=== PATIENT | male | born 1985 | race Caucasian/White ===

== ENCOUNTER → 2017-01-24 | Outpatient (CLI) | payer OTHER ==
[~2017-01-24] MED LIST: ATV1 PO; DICY10CA12 PO; LRS20 PO; MELO15TA4 PO; NRN600 PO; OXYC-609 PO; OXYC1TAB3 PO; POLY335019 PO; SNG10 PO; SULF800T23 PO
== END | disposition home or self-care (01) ==
LOC: C.LAB 19:11
DX: Z02.83 Encounter for blood-alcohol and blood-drug test (principal)

== ENCOUNTER 2017-02-26 20:16 | Emergency (ER) | payer OTHER ==
[~2017-02-26] VITALS: Ht 172.7 cm; Wt 61.4 kg
[~2017-02-26 20:16] MED LIST changes: -NRN600 PO; -OXYC-609 PO; -OXYC1TAB3 PO; -POLY335019 PO; -SULF800T23 PO
[2017-02-26 20:28] VITALS: TEMP 37.1; Ht 172.7 cm; Wt 61.4 kg
[2017-02-26] MEDS ORDERED: SULF800T23 PO (22:35)
[2017-02-26] MEDS ORDERED: ONDANSETRON INJ 2 MG/ML 2 ML VIAL IV STA (22:50)
[2017-02-26] MEDS ORDERED: SODIUM CHLORIDE 0.9% 500ML 500 ML IV STA (22:50)
[2017-02-26] MEDS ORDERED: SODIUM CHLORIDE 0.9% 1000ML 1,000 ML IV STA (22:50)
[2017-02-26] MEDS ORDERED: MoRPHine SULFATE 10 MG/ML CARP/VIAL IV PRN (23:00)
[2017-02-26] MEDS ORDERED: OPTIRAY 320 IV PRN (23:00)
--- NOTE | 2017-02-26 23:02 | EMERGENCY ROOM VISIT NOTE ---
History First contact with patient: 22:24 Chief Complaint: ABDOMINAL PAIN Stated Complaint: RT SIDE ABDOMINAL PAIN Nursing Triage Summary: right sided abd pain since yesterday pt has no appendix. History of Present Illness The patient is a 31 year old male w/ hx of Intussusception s/p repair and Appendectomy ( Rosangela Bryan 2013 ) who presents to the Emergency Room with complaints of 2 day hx of abdominal pain. Pain is 8-9/10 intensity, radiating to the back, comes and goes with a duration of hours at a time, worsens with breathing. He denies any association with eating. He also reports Nausea/vomiting, constipation although he reports a BM yesterday. Pt denies headache fevers, chills, chest pain, shortness of breath, diarrhea, pain with urination, and melena. Review of Systems See HPI for pertinent positives & negatives. A total of 10 systems reviewed and were otherwise negative. Past Medical/Surgical History Medical Problems: (1) Abdominal pain (2) Abdominal pain, acute (3) Asthma (4) GI bleed (5) GI bleed (6) GI bleed (7) Headache (8) Headache (9) Hematochezia (10) Hemorrhoid (11) Influenza A (12) Influenza A (13) Intussusception (14) Nausea and vomiting (15) Small and large bowel resection Surgical Problems: (1) History of bowel resection Family History Diabetes mellitus FH: cancer Hypertension Social History Smoking Status: Current Every Day Smoker Alcohol Use: none Drug Use: none Marital Status: in relationship Housing Status: lives with significant other Occupation Status: employed Current/Historical Medications Scheduled Dicyclomine Hcl (Dicyclomine Hcl), 10 MG PO BID Gabapentin (Gabapentin), 600 MG PO TID Meloxicam (Meloxicam), 15 MG PO DAILY Montelukast Sod (Montelukast Sodium), 10 MG PO DAILY Sulfa/Trimethoprim (Bactrim Ds 800MG/160MG), 1 TAB PO BID Scheduled PRN Baclofen (Baclofen), 20 MG PO TID PRN for Muscle Spasm Lorazepam (Lorazepam), 0.5-1 MG PO TID PRN for Anxiety/Panic Allergies Coded Allergies: Amoxicillin (Verified Allergy, Intermediate, Swelling amd blistering of hands, 02/26/17) Clavulanic Acid (Verified Allergy, Intermediate, Swelling amd blistering of hands, 02/26/17) Physical Exam Vital Signs Date Time Temp Pulse Resp B/P Pulse Ox O2 Delivery O2 Flow Rate FiO2 02/27/17 00:28 76 02/26/17 20:28 37.1 94 20 128/72 98 Physical Exam GENERAL: alert, severe distress secondary to abdominal pain EYE EXAM: normal conjunctiva, PERRL and EOM's grossly intact OROPHARYNX: no exudate, no erythema, lips, buccal mucosa, and tongue normal and mucous membranes are moist NECK: supple, no nuchal rigidity, no adenopathy, non-tender LUNGS: Clear to auscultation. Normal chest wall mechanics HEART: no murmurs, S1 normal and S2 normal ABDOMEN: +rigidity, +guarding, non-distended, Tender to palpation in the RUQ, normo-active bowel sounds, no masses SKIN: no rashes and no bruising UPPER EXTREMITIES: upper extremities are grossly normal. LOWER EXTREMITIES: No pitting edema. Medical Decision & Procedures Laboratory Results 02/26/17 23:35 Red Blood Count 4.29, Mean Corpuscular Volume 87.6, Mean Corpuscular Hemoglobin 31.5, Mean Corpuscular Hemoglobin Concent 35.9, Mean Platelet Volume 9.6, Neutrophils (%) (Auto) 60.0, Lymphocytes (%) (Auto) 30.2, Monocytes (%) (Auto) 7.5, Eosinophils (%) (Auto) 1.6, Basophils (%) (Auto) 0.4, Neutrophils # (Auto) 4.50, Lymphocytes # (Auto) 2.26, Monocytes # (Auto) 0.56, Eosinophils # (Auto) 0.12, Basophils # (Auto) 0.03 02/26/17 23:35 Test 02/26/17 23:35 02/26/17 23:56 02/27/17 00:25 White Blood Count 7.49 K/uL (4.8-10.8) Red Blood Count 4.29 M/uL (4.7-6.1) Hemoglobin 13.5 g/dL (14.0-18.0) Hematocrit 37.6 % (42-52) Mean Corpuscular Volume 87.6 fL (80-100) Mean Corpuscular Hemoglobin 31.5 pg (25-34) Mean Corpuscular Hemoglobin Concent 35.9 g/dl (32-36) Platelet Count 241 K/uL (130-400) Mean Platelet Volume 9.6 fL (7.4-10.4) Neutrophils (%) (Auto) 60.0 % Lymphocytes (%) (Auto) 30.2 % Monocytes (%) (Auto) 7.5 % Eosinophils (%) (Auto) 1.6 % Basophils (%) (Auto) 0.4 % Neutrophils # (Auto) 4.50 K/uL (1.4-6.5) Lymphocytes # (Auto) 2.26 K/uL (1.2-3.4) Monocytes # (Auto) 0.56 K/uL (0.11-0.59) Eosinophils # (Auto) 0.12 K/uL (0-0.5) Basophils # (Auto) 0.03 K/uL (0-0.2) RDW Standard Deviation 46.4 fL (36.4-46.3) RDW Coefficient of Variation 14.4 % (11.5-14.5) Immature Granulocyte % (Auto) 0.3 % Immature Granulocyte # (Auto) 0.02 K/uL (0.00-0.02) Echinocytes 1+ Est Creatinine Clear Calc Drug Dose 71.5 ml/min Estimated GFR () 84.3 Estimated GFR (Non- 72.7 BUN/Creatinine Ratio 16.3 (10-20) Calcium Level 8.6 mg/dl (8.5-10.1) Total Bilirubin 0.3 mg/dl (0.2-1) Direct Bilirubin < 0.1 mg/dl (0-0.2) Aspartate Amino Transf (AST/SGOT) 32 U/L (15-37) Alanine Aminotransferase (ALT/SGPT) 37 U/L (12-78) Alkaline Phosphatase 77 U/L (45-117) Total Protein 7.2 gm/dl (6.4-8.2) Albumin 4.1 gm/dl (3.4-5.0) Lipase 101 U/L (73-393) Bedside Hemoglobin 13.6 g/dl (14.0-18.0) Bedside Hematocrit 40 % (42-52) Bedside Sodium 138 mEq/L (135-144) Bedside Potassium 4.2 mEq/L (3.3-5.0) Bedside Chloride 101 mEq/L (101-112) Bedside Total CO2 24 mEq/l (24-31) Anion Gap 19.0 mmol/L (16-25) Bedside Blood Urea Nitrogen 21 mg/dl (7-18) Bedside Creatinine 1.2 mg/dl (0.6-1.3) Bedside Glucose (other) 106 mg/dl (70-99) Bedside Ionized Calcium (Adeline) 1.15 mmol/l (1.12-1.32) Medications Administered Medications (Trade) Dose Ordered Sig/[facility] Route Start Time Stop Time Status Last Admin Dose Admin Sodium Chloride 500 ml @ 999 mls/hr Q31M STAT IV 02/26/17 22:50 02/26/17 23:20 DC 02/26/17 23:45 999 MLS/HR Sodium Chloride (Nss 1000ml) 1,000 ml @ 200 mls/hr Q5H STAT IV 02/26/17 22:50 02/27/17 03:49 02/26/17 23:45 200 MLS/HR Ondansetron HCl (Zofran Inj) 4 mg NOW STAT IV 02/26/17 22:50 02/26/17 22:53 DC 02/26/17 23:43 4 MG Morphine Sulfate (MoRPHine SULFATE INJ) 4 mg STK-MED ONCE .ROUTE 02/26/17 23:43 02/26/17 23:44 DC 02/26/17 23:43 4 MG Morphine Sulfate (MoRPHine SULFATE INJ) 2 mg STK-MED ONCE .ROUTE 02/26/17 23:43 02/26/17 23:44 DC 02/26/17 23:44 2 MG Morphine Sulfate (MoRPHine SULFATE INJ) 4 mg STK-MED ONCE .ROUTE 02/27/17 00:10 02/27/17 00:11 DC 02/27/17 00:01 4 MG Morphine Sulfate (MoRPHine SULFATE INJ) 2 mg STK-MED ONCE .ROUTE 02/27/17 00:10 02/27/17 00:11 DC 02/27/17 00:01 2 MG Medical Decision Differential diagnoses includes but is not limited to gastritis, peptic ulcer disease, GERD, gallbladder disease, pancreatitis, small bowel obstruction, acute coronary syndrome, pericarditis, ischemic bowel, irritable bowel disease, irritable bowel syndrome, appendicitis, diverticulitis, malignancy, hernia, urinary tract infection, torsion, perforation, trauma, infectious. intussusception This is a 31 yo M with a Hx of intussusception s/p surgical repair (2013) s/p appendectomy p/w 8-08/11 abdominal pain x 2 days, afebrile, with guarding, rigidity on exam, tenderness to palpation in RUQ. Abdominal Pain - Make NPO - CBC: H/H 13.5/37.6 unremarkable - BMP: unremarkable - LFT: wnl - Lipase: wnl - CT Abdomen/Pelvis: unremarkable Patient has abdominal pain of unknown etiology, Labs unremarkable, CT abdomen, pelvis unremarkable. Pain controlled in ED with Morphine 6 mg, IV Dilaudid .5 mg, 30 mg IV Toradol. Patient was discharged with followup to PCP within the next 2 days. - Given Morphine 6mg q15 PRN, IV Zofran 4 mg - Given IV Fluids 2L NS - Given IV Toradol 30 mg x1 - Given IV Dilaudid .5 mg x1 Impression Primary Impression: RUQ abdominal pain Departure Information Referrals Jenny Trujillo A. P.ARazia (PCP) Patient Instructions My [facility] Resident Tracking Resident Involvement: Resident Care Provided Care Provided: Adult ED
--- NOTE | 2017-02-26 23:35 | EMERGENCY ROOM VISIT NOTE ---
History Report prepared by Idalia: Jer Monk Under the Supervision of: Dr. Nolberto Yang M.D. First contact with patient: 22:23 Chief Complaint: ABDOMINAL PAIN Stated Complaint: RT SIDE ABDOMINAL PAIN Nursing Triage Summary: right sided abd pain since yesterday pt has no appendix. History of Present Illness The patient is a 31 year old male who presents to the Emergency Room with complaints of on and off worsening right sided abdominal pain starting two days ago. He currently rates his discomfort as an 8-9/10 in severity. The patient states that the pain really got worse around 1800 tonight. The patient additionally is complaining of nausea, and the pain radiating to his back. The patient denies any vomiting, testicular pain, or urinary symptoms. He states that he had surgery for intussusception and an appendectomy in the past. The patient states that he has a history of kidney infections. He states that the pain is not worsened with eating, and he states that the pain is worsened with breathing. Source of History: patient Onset: two days ago Position: abdomen (RUQ) Symptom Intensity: 8-9/10 Timing: worsening, other (on and off) Modifying Factors (Worsening): breathing Associated Symptoms: + back pain, + nausea, No urinary symptoms, No vomiting Review of Systems See HPI for pertinent positives & negatives. A total of 10 systems reviewed and were otherwise negative. Past Medical & Surgical Medical Problems: (1) Abdominal pain (2) Abdominal pain, acute (3) Asthma (4) GI bleed (5) GI bleed (6) GI bleed (7) Headache (8) Headache (9) Hematochezia (10) Hemorrhoid (11) Influenza A (12) Influenza A (13) Intussusception (14) Nausea and vomiting (15) Small and large bowel resection Surgical Problems: (1) History of bowel resection Family History Diabetes mellitus FH: cancer Hypertension Social History Smoking Status: Current Every Day Smoker Alcohol Use: none Drug Use: none Marital Status: in relationship Housing Status: lives with significant other Occupation Status: employed Current/Historical Medications Scheduled Dicyclomine Hcl (Dicyclomine Hcl), 10 MG PO BID Gabapentin (Gabapentin), 600 MG PO TID Meloxicam (Meloxicam), 15 MG PO DAILY Montelukast Sod (Montelukast Sodium), 10 MG PO DAILY Sulfa/Trimethoprim (Bactrim Ds 800MG/160MG), 1 TAB PO BID Scheduled PRN Baclofen (Baclofen), 20 MG PO TID PRN for Muscle Spasm Lorazepam (Lorazepam), 0.5-1 MG PO TID PRN for Anxiety/Panic Allergies Coded Allergies: Amoxicillin (Verified Allergy, Intermediate, Swelling amd blistering of hands, 02/26/17) Clavulanic Acid (Verified Allergy, Intermediate, Swelling amd blistering of hands, 02/26/17) Physical Exam Vital Signs Date Time Temp Pulse Resp B/P Pulse Ox O2 Delivery O2 Flow Rate FiO2 02/27/17 01:13 64 16 103/43 95 Room Air 02/27/17 00:28 76 02/26/17 20:28 37.1 94 20 128/72 98 Physical Exam GENERAL: Holding his right upper quadrant in significant distress secondary to pain. HEENT: No acute trauma, normocephalic atraumatic, mucous membranes moist, no nasal congestion, no scleral icterus. NECK: No stridor, no adenopathy, no meningismus, trachea is midline. LUNGS: Clear to auscultation bilaterally, no wheeze, no rhonchi, breath sounds equal. HEART: Without murmurs gallops or rubs, regular rate and rhythm. ABDOMEN: Soft, tender in the right upper quadrant, bowel sounds positive, no distension, no obvious hernias, no peritonitis. EXTREMITIES: No cyanosis or edema, full range of motion of all the joints without pain or difficulty, no signs for acute trauma. NEUROLOGIC: Oriented x 3, no acute motor or sensory deficits, no focal weakness. SKIN: No rash, no jaundice, no diaphoresis. Medical Decision & Procedures ER Provider Diagnostic Interpretation: CT results as stated below per my review and radiologist interpretation: CT ABDOMEN & PELVIS: Comparison: CT abdomen and pelvis 11/22/15 Postsurgical changes near the cecal tip and terminal ileum. No evidence of bowel obstruction. No free fluid. No free air. Liver, gallbladder, pancreas, spleen, adrenals, and kidneys are unremarkable. Urinary bladder is moderately distended. Radiologist: Tariq See MD Laboratory Results 02/26/17 23:35 Red Blood Count 4.29, Mean Corpuscular Volume 87.6, Mean Corpuscular Hemoglobin 31.5, Mean Corpuscular Hemoglobin Concent 35.9, Mean Platelet Volume 9.6, Neutrophils (%) (Auto) 60.0, Lymphocytes (%) (Auto) 30.2, Monocytes (%) (Auto) 7.5, Eosinophils (%) (Auto) 1.6, Basophils (%) (Auto) 0.4, Neutrophils # (Auto) 4.50, Lymphocytes # (Auto) 2.26, Monocytes # (Auto) 0.56, Eosinophils # (Auto) 0.12, Basophils # (Auto) 0.03 02/26/17 23:35 Test 02/26/17 23:35 02/26/17 23:56 02/27/17 00:25 White Blood Count 7.49 K/uL (4.8-10.8) Red Blood Count 4.29 M/uL (4.7-6.1) Hemoglobin 13.5 g/dL (14.0-18.0) Hematocrit 37.6 % (42-52) Mean Corpuscular Volume 87.6 fL (80-100) Mean Corpuscular Hemoglobin 31.5 pg (25-34) Mean Corpuscular Hemoglobin Concent 35.9 g/dl (32-36) Platelet Count 241 K/uL (130-400) Mean Platelet Volume 9.6 fL (7.4-10.4) Neutrophils (%) (Auto) 60.0 % Lymphocytes (%) (Auto) 30.2 % Monocytes (%) (Auto) 7.5 % Eosinophils (%) (Auto) 1.6 % Basophils (%) (Auto) 0.4 % Neutrophils # (Auto) 4.50 K/uL (1.4-6.5) Lymphocytes # (Auto) 2.26 K/uL (1.2-3.4) Monocytes # (Auto) 0.56 K/uL (0.11-0.59) Eosinophils # (Auto) 0.12 K/uL (0-0.5) Basophils # (Auto) 0.03 K/uL (0-0.2) RDW Standard Deviation 46.4 fL (36.4-46.3) RDW Coefficient of Variation 14.4 % (11.5-14.5) Immature Granulocyte % (Auto) 0.3 % Immature Granulocyte # (Auto) 0.02 K/uL (0.00-0.02) Echinocytes 1+ Est Creatinine Clear Calc Drug Dose 71.5 ml/min Estimated GFR () 84.3 Estimated GFR (Non- 72.7 BUN/Creatinine Ratio 16.3 (10-20) Calcium Level 8.6 mg/dl (8.5-10.1) Total Bilirubin 0.3 mg/dl (0.2-1) Direct Bilirubin < 0.1 mg/dl (0-0.2) Aspartate Amino Transf (AST/SGOT) 32 U/L (15-37) Alanine Aminotransferase (ALT/SGPT) 37 U/L (12-78) Alkaline Phosphatase 77 U/L (45-117) Total Protein 7.2 gm/dl (6.4-8.2) Albumin 4.1 gm/dl (3.4-5.0) Lipase 101 U/L (73-393) Bedside Hemoglobin 13.6 g/dl (14.0-18.0) Bedside Hematocrit 40 % (42-52) Bedside Sodium 138 mEq/L (135-144) Bedside Potassium 4.2 mEq/L (3.3-5.0) Bedside Chloride 101 mEq/L (101-112) Bedside Total CO2 24 mEq/l (24-31) Anion Gap 19.0 mmol/L (16-25) Bedside Blood Urea Nitrogen 21 mg/dl (7-18) Bedside Creatinine 1.2 mg/dl (0.6-1.3) Bedside Glucose (other) 106 mg/dl (70-99) Bedside Ionized Calcium (Adeline) 1.15 mmol/l (1.12-1.32) Urine Color YELLOW Urine Appearance CLEAR (CLEAR) Urine pH 7.5 (4.5-7.5) Urine Specific Leming 1.017 (1.000-1.030) Urine Protein NEG (NEG) Urine Glucose (UA) NEG (NEG) Urine Ketones NEG (NEG) Urine Occult Blood NEG (NEG) Urine Nitrite NEG (NEG) Urine Bilirubin NEG (NEG) Urine Urobilinogen NEG (NEG) Urine Leukocyte Esterase NEG (NEG) Laboratory results reviewed by me. Medications Administered Medications (Trade) Dose Ordered Sig/Lauren Route Start Time Stop Time Status Last Admin Dose Admin Sodium Chloride 500 ml @ 999 mls/hr Q31M STAT IV 02/26/17 22:50 02/26/17 23:20 DC 02/26/17 23:45 999 MLS/HR Sodium Chloride (Nss 1000ml) 1,000 ml @ 200 mls/hr Q5H STAT IV 02/26/17 22:50 02/27/17 03:49 02/26/17 23:45 200 MLS/HR Ondansetron HCl (Zofran Inj) 4 mg NOW STAT IV 02/26/17 22:50 02/26/17 22:53 DC 02/26/17 23:43 4 MG Morphine Sulfate (MoRPHine SULFATE INJ) 4 mg STK-MED ONCE .ROUTE 02/26/17 23:43 02/26/17 23:44 DC 02/26/17 23:43 4 MG Morphine Sulfate (MoRPHine SULFATE INJ) 2 mg STK-MED ONCE .ROUTE 02/26/17 23:43 02/26/17 23:44 DC 02/26/17 23:44 2 MG Morphine Sulfate (MoRPHine SULFATE INJ) 4 mg STK-MED ONCE .ROUTE 02/27/17 00:10 02/27/17 00:11 DC 02/27/17 00:01 4 MG Morphine Sulfate (MoRPHine SULFATE INJ) 2 mg STK-MED ONCE .ROUTE 02/27/17 00:10 02/27/17 00:11 DC 02/27/17 00:01 2 MG Hydromorphone HCl (Dilaudid Inj) 0.5 mg NOW STAT IV 02/27/17 00:45 02/27/17 00:46 DC 02/27/17 01:09 0.5 MG Ketorolac Tromethamine (Toradol Inj) 30 mg NOW STAT IV 02/27/17 00:57 02/27/17 01:00 DC 02/27/17 01:10 30 MG ED Course 2247: The patient was evaluated in room B9. A complete history and physical exam was performed. 2250: Zofran Inj 4mg IV, Sodium Chloride 1000 ml @ 200 mls/hr IV, Sodium Chloride 500 ml @ 999 mls/hr IV 2343: Morphine Sulfate 2mg, Morphine Sulfate 4mg 0010: Morphine Sulfate 2mg, Morphine Sulfate 4mg 0045: Dilaudid Inj 0.5mg IV 0057: Toradol Inj 30mg IV 0135: Reevaluated the patient. Discussed results and discharge instructions: He verbalized understanding and agreement. The patient is ready for discharge. 0145: Roxicodone Immediate Rel 5mg 1 Home Pack PO Medical Decision The patient is a 31 year old male who presents to the ED with complaints of right sided abdominal pain. Differential diagnoses considered include renal colic, bowel obstruction, bowel perforation, biliary colic, pancreatitis, hernia , UTI, pyelonephritis, diverticulitis. There is no leukocytosis or concerning anemia. No significant electrolyte abnormality, kidney failure, hepatitis or pancreatitis. Urinalysis does not show hematuria or infection. Abdominal and pelvis CT shows no bowel obstruction , or free air or acute surgical process. On exam, the patient was not febrile. He seemed in pain but his abdomen was soft. He was tender along the right side. I did not find evidence for peritonitis. Patient received IV morphine, IV saline, IV Zofran. He received IV Dilaudid and IV Toradol. The patient feels improved, he does want to be discharged home. He has had similar abdominal pain but not to this extent. He is much more comfortable now and is going to be discharged with a bland diet, a few oxycodone, rest. If he has worsening symptoms, fever or vomiting, he will return for reassessment. At this point, the cause for the pain is unclear. [place] Drug Monitoring Program Search Results: patient reviewed within database, no issues identified Impression Primary Impression: Right sided abdominal pain Scribe Attestation The scribe's documentation has been prepared under my direction and personally reviewed by me in its entirety. I confirm that the note above accurately reflects all work, treatment, procedures, and medical decision making performed by me. Departure Information Dispostion Home / Self-Care Referrals Jenny Trujillo A. P.A. (PCP) Forms Call Back Authorization, HOME CARE DOCUMENTATION FORM, IMPORTANT VISIT INFORMATION, Work Instructions Patient Instructions My [facility] [employer] Additional Instructions oxy ir 1 tab every 4 hours for more severe pain all other meds as before bland diet---gatorade, crackers, soup, toast follow with shelia dorantes this week for a recheck heat to the sore area may help return for fever or worsening symptoms testing today was all ok as we discussed
[2017-02-26] MEDS ORDERED: MoRPHine SULFATE 2 MG/ML CARP ONE (23:43)
[2017-02-26] MEDS ORDERED: MoRPHine SULFATE 4 MG/ML 1 ML CARP\\VIAL ONE (23:43)
[2017-02-27 00:01] LABS: HEMATOCRIT 37.6 % (42-52); MEAN CELL VOLUME 87.6 fL (80-100); MEAN CORPUSCULAR HEMOGLOBIN 31.5 pg (25-34); MEAN CORPUSCULAR HGB CONC 35.9 g/dl (32-36); MEAN PLATELET VOLUME 9.6 fL (7.4-10.4); PLATELET COUNT 241 K/uL (130-400); RED BLOOD COUNT 4.29 M/uL (4.7-6.1); WHITE BLOOD COUNT 7.49 K/uL (4.8-10.8)
[2017-02-27 00:09] LABS: ISTAT CREATININE 1.2 mg/dl (0.6-1.3); ISTAT HEMOGLOBIN 13.6 g/dl (14.0-18.0); ISTAT IONIZED CALCIUM 1.15 mmol/l (1.12-1.32)
[2017-02-27] MEDS ORDERED: MoRPHine SULFATE 2 MG/ML CARP ONE (00:10)
[2017-02-27] MEDS ORDERED: MoRPHine SULFATE 4 MG/ML 1 ML CARP\\VIAL ONE (00:10)
[2017-02-27 00:23] LABS: ALT/SGPT 37 U/L (12-78); BLOOD UREA NITROGEN 21 mg/dl (7-18); BUN/CREATININE RATIO 16.3 (10-20); CALCIUM 8.6 mg/dl (8.5-10.1); CARBON DIOXIDE 26 mmol/L (21-32); CHLORIDE 105 mmol/L (98-107); GLUCOSE 106 mg/dl (70-99); POTASSIUM 4.2 mmol/L (3.5-5.1); SODIUM 139 mmol/L (136-145)
[2017-02-27 00:25] LABS: ALKALINE PHOSPHATASE 77 U/L (45-117); AST/SGOT 32 U/L (15-37)
[2017-02-27] MEDS ORDERED: HYDROmorphone INJ 0.5 MG/0.5 ML SYR IV STA (00:45)
[2017-02-27 00:50] LABS: URINE APPEARANCE CLEAR (CLEAR); URINE BILIRUBIN NEG (NEG); URINE COLOR YELLOW; URINE NITRITE NEG (NEG); URINE PH 7.5 (4.5-7.5); URINE SPECIFIC GRAVITY 1.017 (1.000-1.030); UROBILINOGEN NEG (NEG)
[2017-02-27 00:54] LABS: BASO % 0.4 %; BASO ABS # 0.03 K/uL (0-0.2); COMPLETE YES; ECHINOCYTES 1+; EOS % 1.6 %; IG% 0.3 %; LYMPH % 30.2 %; LYMPH ABS # 2.26 K/uL (1.2-3.4); MONO % 7.5 %
[2017-02-27] MEDS ORDERED: KETOROLAC TROMETHAMINE 30 MG/ML VIAL IV STA (00:57)
[2017-02-27 01:11] LABS: MANUAL MICROSCOPIC REQUIRED? NO; REVIEW REQ? NO
[2017-02-27 01:45] VITALS: BP 94/47; PULSE 55; O2SAT 96
[2017-02-27] MEDS ORDERED: OXYCODONE IR HOME PACK PO ONE (01:45)
--- NOTE | 2017-02-27 06:56 | DIAGNOSTIC IMAGING REPORT ---
CT ABD/PELVIS IV CONTRAST ONLY CLINICAL HISTORY: Severe generalized abdominal pain. History of intussusception. History of prior partial bowel resection. Possible bowel obstruction. COMPARISON STUDY: 11/22/2015 TECHNIQUE: Following the IV administration of 91 mL of Optiray-320, CT scan of the abdomen and pelvis was performed from the lung bases to the proximal femurs. Images are reviewed in the axial, sagittal, and coronal planes. IV contrast was administered without complication. CT DOSE: 404.62 mGycm FINDINGS: Lower chest: The heart is normal in size and configuration, without pericardial effusion. The lung bases and pleural spaces are clear. Liver: The contrast-enhanced liver is normal in size, contour, and attenuation. There is no intrahepatic biliary ductal dilatation. The hepatic veins and portal veins are patent. Gallbladder: Unremarkable. Spleen: Normal in size and attenuation. Pancreas: Unremarkable. Adrenal glands: Unremarkable. Kidneys: There is symmetric renal cortical enhancement. The kidneys are normal in size without hydronephrosis. Bowel: There are no transition zones indicate bowel obstruction. There are postsurgical changes within the right colon. By history the appendix is absent. There is no acute diverticulitis. Peritoneum: There is no intraperitoneal free air or abdominal ascites. Vasculature: The abdominal aorta is normal in course and caliber. Adenopathy: None. Pelvic viscera: There is mild bladder distention. Skeletal structures: No destructive osseous lesions are seen. IMPRESSION: 1. Postsurgical changes involving the cecal region 2. No acute intra-abdominal or pelvic findings 3. No evidence of bowel obstruction. No evidence of free air 4. Mildly distended urinary bladder 5. No acute inflammatory changes Electronically signed by: Hood Lozano M.D. 02/27/2017 6:54 AM Dictated Date/Time: 02/27/2017 6:51 AM
[2017-02-28] MEDS ORDERED: OXYC-609 PO (11:51)
[2017-02-28] MEDS ORDERED: POLY335019 PO (13:28)
[2017-02-28] MEDS ORDERED: OXYC1TAB3 PO (13:28)
[2017-06-09] MEDS ORDERED: NRN600 PO (17:43)
== END 2017-02-27 01:45 | disposition home or self-care (01) ==
LOC: C.EDB 20:17
DX: R10.9 Unspecified abdominal pain (principal); J45.909 Unspecified asthma, uncomplicated; F17.200 Nicotine dependence, unspecified, uncomplicated; Z98.890 Other specified postprocedural states; Z79.899 Other long term (current) drug therapy; Z88.1 Allergy status to other antibiotic agents; Z88.8 Allergy status to other drugs, medicaments and biological substances; Z83.3 Family history of diabetes mellitus; Z80.9 Family history of malignant neoplasm, unspecified; Z82.49 Family history of ischemic heart disease and other diseases of the circulatory system

== ENCOUNTER 2017-02-28 11:31 | Emergency (ER) | payer OTHER ==
[~2017-02-28] VITALS: Ht 172.7 cm; Wt 67.5 kg
[~2017-02-28 11:31] MED LIST changes: +SULF800T23 PO
[2017-02-28 11:37] VITALS: TEMP 36.6; Ht 172.7 cm; Wt 67.5 kg
[2017-02-28] MEDS ORDERED: OXYC-609 PO (11:51)
[2017-02-28] MEDS ORDERED: SODIUM CHLORIDE 0.9% 1000ML 1,000 ML IV STA (12:05)
[2017-02-28] MEDS ORDERED: ONDANSETRON INJ 2 MG/ML 2 ML VIAL IV STA (12:05)
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
[2017-02-28] MEDS ORDERED: MoRPHine SULFATE 4 MG/ML 1 ML CARP\\VIAL IV PRN (12:15)
[2017-02-28] MEDS ORDERED: OPTIRAY 320 IV PRN (12:15)
--- NOTE | 2017-02-28 12:19 | DIAGNOSTIC IMAGING REPORT ---
CHEST ONE VIEW PORTABLE CLINICAL HISTORY: ABDOMINAL PAIN/GI pain COMPARISON STUDY: 05/10/2016 FINDINGS: The bones soft tissues and hemidiaphragms are normal. The cardiomediastinal silhouette is normal. The lungs are clear. The pulmonary vasculature is normal. IMPRESSION: Negative chest. Electronically signed by: Nicolás Yancey M.D. 02/28/2017 12:18 PM Dictated Date/Time: 02/28/2017 12:18 PM
[2017-02-28 12:25] LABS: ISTAT HEMOGLOBIN 12.6 g/dl (14.0-18.0); ISTAT IONIZED CALCIUM 1.19 mmol/l (1.12-1.32)
[2017-02-28 12:27] LABS: HEMATOCRIT 35.5 % (42-52); MEAN CELL VOLUME 88.3 fL (80-100); MEAN CORPUSCULAR HEMOGLOBIN 31.8 pg (25-34); MEAN CORPUSCULAR HGB CONC 36.1 g/dl (32-36); MEAN PLATELET VOLUME 9.6 fL (7.4-10.4); PLATELET COUNT 221 K/uL (130-400); RED BLOOD COUNT 4.02 M/uL (4.7-6.1); WHITE BLOOD COUNT 8.79 K/uL (4.8-10.8)
[2017-02-28 12:50] LABS: BLOOD UREA NITROGEN 18 mg/dl (7-18); BUN/CREATININE RATIO 18.3 (10-20); CALCIUM 8.8 mg/dl (8.5-10.1); CARBON DIOXIDE 26 mmol/L (21-32); CHLORIDE 107 mmol/L (98-107); CREATININE 0.99 mg/dl (0.60-1.40); GLUCOSE 91 mg/dl (70-99); POTASSIUM 4.2 mmol/L (3.5-5.1); SODIUM 140 mmol/L (136-145)
[2017-02-28 12:56] LABS: ALKALINE PHOSPHATASE 76 U/L (45-117); ALT/SGPT 40 U/L (12-78); AST/SGOT 30 U/L (15-37)
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
[2017-02-28 13:03] LABS: BASO % 0.3 %; BASO ABS # 0.03 K/uL (0-0.2); COMPLETE YES; EOS % 1.3 %; IG% 0.2 %; LYMPH % 28.1 %; LYMPH ABS # 2.47 K/uL (1.2-3.4); MONO % 5.1 %
[2017-02-28] MEDS ORDERED: OXYC1TAB3 PO (13:28)
[2017-02-28] MEDS ORDERED: POLY335019 PO (13:28)
[2017-02-28 13:47] VITALS: BP 113/64; PULSE 57; O2SAT 97
[2017-06-09] MEDS ORDERED: NRN600 PO (17:43)
[2017-10-03] MEDS ORDERED: HYDR-5688 PO (08:23)
[2017-10-03] MEDS ORDERED: CIPR0.3S OP (08:23)
[2017-10-03] MEDS ORDERED: TPM25 PO (08:26)
[2017-10-03] MEDS ORDERED: MELO7.5T5 PO (08:26)
== END 2017-02-28 13:48 | disposition home or self-care (01) ==
LOC: C.EDB 11:33 → C.EDA 13:48
DX: S20.219A Contusion of unspecified front wall of thorax, initial encounter (principal); S39.012A Strain of muscle, fascia and tendon of lower back, initial encounter; S30.1XXA Contusion of abdominal wall, initial encounter; V43.52XA Car driver injured in collision with other type car in traffic accident, initial encounter; J45.909 Unspecified asthma, uncomplicated; Z87.19 Personal history of other diseases of the digestive system; Z98.890 Other specified postprocedural states; F17.200 Nicotine dependence, unspecified, uncomplicated; Z79.899 Other long term (current) drug therapy; Z88.1 Allergy status to other antibiotic agents; Z88.8 Allergy status to other drugs, medicaments and biological substances; Z83.3 Family history of diabetes mellitus; Z80.9 Family history of malignant neoplasm, unspecified; Z82.49 Family history of ischemic heart disease and other diseases of the circulatory system

== ENCOUNTER 2017-06-09 18:45 | Emergency (ER) | payer OTHER ==
[~2017-06-09] VITALS: Ht 172.7 cm; Wt 65.1 kg
[~2017-06-09 18:45] MED LIST changes: +NRN600 PO; +OXYC-609 PO; +OXYC1TAB3 PO; +POLY335019 PO
[2017-06-09 18:47] VITALS: Ht 172.7 cm; Wt 65.1 kg
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
[2017-06-09 20:40] VITALS: BP 90/50; PULSE 76; TEMP 36.7; O2SAT 96
== END 2017-06-09 20:41 | disposition home or self-care (01) ==
LOC: C.EDB 18:46 → C.EDD 20:41
DX: S60.221A Contusion of right hand, initial encounter (principal); W23.1XXA Caught, crushed, jammed, or pinched between stationary objects, initial encounter; J45.909 Unspecified asthma, uncomplicated; M54.5 Low back pain

== ENCOUNTER 2017-07-14 16:44 | Emergency (ER) | payer OTHER ==
[~2017-07-14] VITALS: Ht 172.7 cm; Wt 59.0 kg
[~2017-07-14 16:44] MED LIST changes: -OXYC1TAB3 PO; -POLY335019 PO; -SULF800T23 PO
[2017-07-14 16:56] VITALS: TEMP 36.8; Ht 172.7 cm; Wt 59.0 kg
[2017-07-14] MEDS ORDERED: AZITHROMYCIN 250 MG TAB PO STA (17:22)
[2017-07-14] MEDS ORDERED: CEFTRIAXONE SOD 350MG/ML 1 GM VIAL IM ONE (17:30)
[2017-07-14 18:24] LABS: BASO % 0.5 %; BASO ABS # 0.04 K/uL (0-0.2); COMPLETE YES; EOS % 0.8 %; HEMATOCRIT 44.1 % (42-52); IG% 0.1 %; LYMPH % 26.4 %; LYMPH ABS # 2.29 K/uL (1.2-3.4); MEAN CELL VOLUME 90.7 fL (80-100); MEAN CORPUSCULAR HEMOGLOBIN 32.3 pg (25-34); MEAN CORPUSCULAR HGB CONC 35.6 g/dl (32-36); MEAN PLATELET VOLUME 9.7 fL (7.4-10.4); NEUT % 65.2 %; PLATELET COUNT 233 K/uL (130-400); RED BLOOD COUNT 4.86 M/uL (4.7-6.1); WHITE BLOOD COUNT 8.69 K/uL (4.8-10.8)
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
[2017-07-14 18:40] LABS: BUN/CREATININE RATIO 27.4 (10-20); CALCIUM 9.1 mg/dl (8.5-10.1); POTASSIUM 4.2 mmol/L (3.5-5.1)
[2017-07-14 18:53] VITALS: BP 118/72; PULSE 72; O2SAT 98
[2017-07-16 13:32] LABS: CHLAMYDIA TRACH RNA*** NOT DETECTED (NOT DETECTED); GC (NEIS GONORRHOEAE)RNA** NOT DETECTED (NOT DETECTED)
== END 2017-07-14 18:54 | disposition home or self-care (01) ==
LOC: C.EDB 16:45 → C.EDD 18:54
DX: R36.9 Urethral discharge, unspecified (principal); J45.909 Unspecified asthma, uncomplicated; F41.9 Anxiety disorder, unspecified; F17.210 Nicotine dependence, cigarettes, uncomplicated; Z72.51 High risk heterosexual behavior; Z90.49 Acquired absence of other specified parts of digestive tract

== ENCOUNTER 2017-10-22 14:51 | Emergency (ER) | payer OTHER ==
[~2017-10-22] VITALS: Ht 172.7 cm; Wt 63.0 kg
[~2017-10-22 14:51] MED LIST changes: +HYDR-5688 PO; -MELO15TA4 PO; +MELO7.5T5 PO; -OXYC-609 PO; +TPM25 PO
[2017-10-22 14:56] VITALS: Ht 172.7 cm; Wt 63.0 kg
[2017-10-22] MEDS ORDERED: PRED50TA PO (15:12)
[2017-10-22] MEDS ORDERED: BENZ1CAP90 PO (15:12)
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
[2017-10-22 15:32] VITALS: BP 104/68; PULSE 55; O2SAT 96
== END 2017-10-22 15:25 | disposition home or self-care (01) ==
LOC: C.EDB 14:52 → C.EDA 15:25
DX: J06.9 Acute upper respiratory infection, unspecified (principal); J45.909 Unspecified asthma, uncomplicated; F17.200 Nicotine dependence, unspecified, uncomplicated; Z87.19 Personal history of other diseases of the digestive system; Z87.828 Personal history of other (healed) physical injury and trauma; Z90.49 Acquired absence of other specified parts of digestive tract; Z79.899 Other long term (current) drug therapy; Z83.3 Family history of diabetes mellitus; Z80.9 Family history of malignant neoplasm, unspecified; Z82.49 Family history of ischemic heart disease and other diseases of the circulatory system

== ENCOUNTER 2018-02-11 14:57 | Emergency (ER) | payer OTHER ==
[~2018-02-11] VITALS: Ht 172.7 cm; Wt 66.4 kg
[~2018-02-11 14:57] MED LIST changes: -ATV1 PO; +BENZ1CAP90 PO; -LRS20 PO; -NRN600 PO
[2018-02-11 15:08] VITALS: BP 110/71; PULSE 62; TEMP 36.7; O2SAT 97; Ht 172.7 cm; Wt 66.4 kg
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
--- NOTE | 2018-02-11 15:35 | EMERGENCY ROOM VISIT NOTE ---
ED Visit Note First contact with patient: 15:12 Resident Physician Supervision Note: I was present with Dr. Presley during the history and exam. I discussed the case with the resident and agree with the findings and plan as documented in the note. Documented By: Kaleb Donnelly
[2018-02-11] MEDS ORDERED: CEPH500C2 PO (15:40)
[2018-02-11] MEDS ORDERED: NRN600 PO (17:43)
[2018-02-11] MEDS ORDERED: ATV1 PO (17:43)
[2018-02-11] MEDS ORDERED: LRS20 PO (19:34)
[2018-02-11] MEDS ORDERED: BACITRACIN OINT 0.9 GM PKT EXT SCH (21:00)
== END 2018-02-11 15:54 | disposition home or self-care (01) ==
LOC: C.EDB 14:59 → C.EDD 15:54
DX: H60.01 Abscess of right external ear (principal); H66.91 Otitis media, unspecified, right ear; M54.5 Low back pain; G89.29 Other chronic pain; J45.909 Unspecified asthma, uncomplicated; E87.6 Hypokalemia; Z83.3 Family history of diabetes mellitus; Z80.9 Family history of malignant neoplasm, unspecified; Z82.49 Family history of ischemic heart disease and other diseases of the circulatory system; F17.210 Nicotine dependence, cigarettes, uncomplicated; Z79.899 Other long term (current) drug therapy; Z88.1 Allergy status to other antibiotic agents

== ENCOUNTER 2018-04-24 20:56 | Emergency (ER) | payer OTHER ==
[~2018-04-24] VITALS: Ht 170.2 cm; Wt 67.6 kg
[~2018-04-24 20:56] MED LIST changes: +ATV1 PO; -BENZ1CAP90 PO; -HYDR-5688 PO; +LRS20 PO; +NRN600 PO
[2018-04-24 21:01] VITALS: TEMP 36.7; Ht 170.2 cm; Wt 67.6 kg
[2018-04-24] MEDS ORDERED: KETOROLAC TROMETHAMINE 15 MG/ML VIAL IV STA (21:39)
[2018-04-24] MEDS ORDERED: ASPI-390 PO (22:01)
[2018-04-24 22:08] LABS: BASO % 0.6 %; BASO ABS # 0.04 K/uL (0-0.2); EOS % 2.2 %; EOS ABS # 0.16 K/uL (0-0.5); HEMATOCRIT 41.2 % (42-52); HEMOGLOBIN 14.8 g/dL (14.0-18.0); IG# 0.02 K/uL (0.00-0.02); LYMPH % 39.9 %; LYMPH ABS # 2.85 K/uL (1.2-3.4); MEAN CELL VOLUME 90.9 fL (80-100); MEAN CORPUSCULAR HEMOGLOBIN 32.7 pg (25-34); MEAN CORPUSCULAR HGB CONC 35.9 g/dl (32-36); MEAN PLATELET VOLUME 9.4 fL (7.4-10.4); MONO ABS # 0.57 K/uL (0.11-0.59); NEUT ABS # 3.51 K/uL (1.4-6.5); PLATELET COUNT 227 K/uL (130-400); RED CELL DISTRIBUTION WIDTH CV 14.6 % (11.5-14.5); WHITE BLOOD COUNT 7.15 K/uL (4.8-10.8)
[2018-04-24 22:28] LABS: ALBUMIN 3.7 gm/dl (3.4-5.0); CALCIUM 8.7 mg/dl (8.5-10.1); CREATININE 0.84 mg/dl (0.60-1.40); POTASSIUM 4.1 mmol/L (3.5-5.1)
[2018-04-24 22:38] LABS: MONOSPOT NEG (NEG)
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
[2018-04-24 23:33] VITALS: BP 126/68; PULSE 61; O2SAT 98
== END 2018-04-24 23:35 | disposition home or self-care (01) ==
LOC: C.EDB 20:57
DX: R59.0 Localized enlarged lymph nodes (principal); R79.89 Other specified abnormal findings of blood chemistry; F17.200 Nicotine dependence, unspecified, uncomplicated; J45.909 Unspecified asthma, uncomplicated

== ENCOUNTER 2024-11-19 15:52 | Inpatient (IN) ==
--- NOTE | 2024-11-19 16:17 | Emergency Department Note ---
Impression & Plan Laceration of knee, right ED Provider Note Chief Complaint: "Right leg laceration" History of Present Illness: This patient is a 39-year-old male who presents to the Emergency Department via private vehicle accompanied by father for evaluation of their right lateral knee laceration. Patient sustained the laceration while earlier today notes that he was cutting some trees, tripped and fell landing with all of his weight onto the chainsaw in his hand then struck the throttle causing the saw to begin spinning and cutting through his pants into the right lateral knee. Overall minimal bleeding. Patient does note pain to the right lateral knee joint extending proximal and distal. Patient has a history of chronic back issues currently undergoing treatment at [facility]. Allergy to Augmentin noted. Medications: As notable Allergies: Augmentin PMH: As notable SHx: As notable ROS: A focused 6 point review of systems were reviewed. Physical Exam: VITAL SIGNS - Vital signs and nursing notes were reviewed. Stable and afebrile. GENERAL -39-year-old male appearing his stated age who is in no acute distress. Communicates well with provider and answers questions appropriately. SKIN - There is a large approximately 10 cm long laceration noted right lateral knee joint. The edges gape apart with traction. No foreign bodies appreciated. There is evidence of involvement of tendon structures with fraying of tendon structures but what appears to be a small portion that tracks deeper into the soft tissues. MUSCULOSKELETAL -patient is able to flex and extend the right knee minimally secondary to pain. Patient able to plantar flex and dorsiflex right foot/ankle. Dorsalis pedis pulse on the right within normal limits. Capillary refill of all toes of the right foot within normal limits. NEUROLOGIC - Spinothalamic tract was found to be intact with ability to discriminate sharp versus dull sensation. No sensory defects of the dorsal column were appreciated utilizing light touch for evaluation. VASCULAR - Capillary refill was brisk. ED Course: Patient was seen and evaluated as above. Patient has an isolated injury to his right lateral knee joint. This was from a chainsaw. Large laceration noted. I did obtain consent and a photo was taken and sent to on-call orthopedist and x- ray of the right knee was also performed. IV clindamycin was ordered for infection prophylaxis noting the patient's allergy to Augmentin therefore refraining from beta-lactam's and similar. Patient was medicated here with IV Toradol and also IV morphine for pain once patient's blood pressure did improve. Initially patient did have some vasovagal episodes which he notes is typical when he experiences lacerations. I did check a CBC to ensure no significant hemoglobin drop and hemoglobin was not concerning low, rather was 13.8. There is what appears to be a reactive leukocytosis secondary to the injury with WBC 13.97. I did speak with Dr. Alan, orthopedic surgeon on-call regarding patient case. We reviewed the imaging and also image of the wound that was obtained after obtaining consent from the patient. Phone call took place at 5:01PM. Risks and benefits of performing primary wound closure versus no repair were discussed with the patient who verbalizes understanding. Verbal consent was obtained prior to performing the procedure. 8 cc of 1% lidocaine without epinephrine was used to anesthetize the right lateral leg laceration. The wound was cleansed and prepped in the typical sterile fashion utilizing normal saline and Betadine. The wound was sterilely draped. Once proper anesthetization was established, the wound was further examined and demonstrated evidence of soft tissue injury with 2 other smaller lacerations parallel inferior to the first laceration. These other two measure approximate 3 cm in length. There is some fibrous pieces of clothing within the wound channel which were meticulously removed with sterile forceps. I then was able to gently retract the wound edges to further examine the injury. Unfortunately does appear that there is a focal section where it does track a bit deeper just inferior to the frayed tendon in the distal third of the wound channel. I will note that the x-ray does show soft tissue gas seen on lateral view. I did copiously irrigate this region with sterile saline and dilute iodine and a sterile dressing was applied. It is unclear if this soft tissue gas is isolated to the superficial soft tissues or if this does indeed represent gas within the joint. At this time I did reach back out to Dr. Alan, orthopedics. I spoke with him via phone at 7:01 PM. He will come to evaluate the patient. Patient case signed out to MACY aJin at shift change, shortly after 7 PM. Plan is for likely intervention in the operative setting. Please refer to further documentation regarding stay. In the evaluation and treatment of this patient the following differential diagnoses entertained: Fracture, dislocation, subluxation, contusion, sprain, strain, retained foreign body, joint capsule injury, among others. Past Med/Surg History Problem List Laceration of knee, right (Acute) Medical History Encounter for pre-operative examination Asthma Anxiety Lumbar degenerative disc disease Surgical History History of partial colectomy Family History Other Diabetes Social History Smoking Status: Current every day smoker Preferred Language: Kiswahili marital status: Current Living Situation: Spouse current occupational status: employed Feels Safe at Home: Yes Allergies Allergies Allergy/AdvReac Type Severity Reaction Status Date / Time amoxicillin Allergy Intermediate Swelling Verified 10/26/21 20:47 amd blistering of hands clavulanic acid Allergy Intermediate Swelling Verified 10/26/21 20:47 amd blistering of hands Home Meds Home Medications Medication Instructions Recorded Confirmed albuterol sulfate 90 mcg/actuation 2 puff inhalation Q6H PRN 03/18/19 10/26/21 aerosol inhaler (Ventolin HFA) Shortness Of Breath Or Wheezing baclofen 20 mg tablet 20 mg PO TID PRN Muscle Spasm 03/18/19 10/26/21 dicyclomine 10 mg capsule 10 mg PO BID 03/18/19 10/26/21 gabapentin 600 mg tablet 600 mg PO QID 03/18/19 10/26/21 montelukast 10 mg tablet 10 mg PO QAM 03/18/19 10/26/21 ibuprofen 200 mg tablet 1,400 mg PO DAILY PRN Pain 07/04/21 10/26/21 tramadol 50 mg tablet 50 mg PO UD PRN Pain 10/26/21 10/26/21 Previous Rx's Medication Instructions Recorded oxycodone 5 mg tablet 5 mg PO Q4 PRN pain #20 tabs 10/26/21 baclofen 20 mg tablet 20 mg PO TID PRN spasm #30 tabs 01/16/24 methylprednisolone 4 mg tablets in 4 mg PO DAILY #21 ea 01/16/24 a dose pack (Medrol (Km)) tramadol 50 mg tablet 50 mg PO Q4H PRN pain #15 tabs 01/16/24 Results & Data (ED) Vital Signs Vital Signs - 24 hr 11/19/24 15:59 11/19/24 16:15 11/19/24 16:54 Temperature 36.9 C Temperature Source Temporal Artery Scan Pulse Rate 93 H 55 L Pulse Rate [Left Finger] 67 Pulse Rhythm Irregular Pulse Rhythm [Left Finger] Pulse Strength [Left Finger] Respiratory Rate 16 16 18 Respiratory Effort / Characteristics Non-Labored Respiratory Depth Normal Respiratory Pattern Blood Pressure 114/73 Blood Pressure [Right Arm] 90/59 L Blood Pressure Mean 86 Blood Pressure Mean [Right Arm] 69 Blood Pressure Position [Right Arm] Pulse Oximetry 96 98 94 Oxygen Delivery Method Room Air Room Air Room Air Sepsis Recent Fever Within 48 Hours No Sepsis New/Unexplained Change in Mental Status N/A Sepsis Action Taken by Nursing No Action Required 11/19/24 18:00 11/19/24 19:06 11/19/24 20:00 Temperature Temperature Source Pulse Rate Pulse Rate [Left Finger] 61 61 Pulse Rhythm Pulse Rhythm [Left Finger] Regular Regular Pulse Strength [Left Finger] Normal Normal Respiratory Rate 16 18 Respiratory Effort / Characteristics Non-Labored Spontaneous Non-Labored Spontaneous Respiratory Depth Normal Normal Respiratory Pattern Regular Regular Blood Pressure Blood Pressure [Right Arm] 114/69 112/69 Blood Pressure Mean Blood Pressure Mean [Right Arm] 84 83 Blood Pressure Position [Right Arm] Lying Pulse Oximetry 96 97 Oxygen Delivery Method Room Air Room Air Room Air Sepsis Recent Fever Within 48 Hours Sepsis New/Unexplained Change in Mental Status Sepsis Action Taken by Nursing 11/19/24 21:01 Temperature Temperature Source Pulse Rate 49 L Pulse Rate [Left Finger] Pulse Rhythm Pulse Rhythm [Left Finger] Pulse Strength [Left Finger] Respiratory Rate 16 Respiratory Effort / Characteristics Respiratory Depth Respiratory Pattern Blood Pressure 100/54 L Blood Pressure [Right Arm] Blood Pressure Mean Blood Pressure Mean [Right Arm] Blood Pressure Position [Right Arm] Pulse Oximetry 98 Oxygen Delivery Method Room Air Sepsis Recent Fever Within 48 Hours Sepsis New/Unexplained Change in Mental Status Sepsis Action Taken by Nursing Laboratory Data 11/19/24 16:20 Lab Results 11/19/24 11/19/24 Range/Units 16:20 20:33 WBC 13.96 H (4.8-10.8) K/ul RBC 4.37 L (4.70-6.10) M/uL Hgb 13.8 L (14.0-18.0) g/dl Hct 38.9 L (42.0-52.0) % MCV 89.0 (80.0-100.0) fL MCH 31.6 (25.0-34.0) pg MCHC 35.5 (32.0-36.0) g/dL RDW Std Deviation 44.9 (36.4-46.3) fL RDW Coeff of Jacquelin 13.8 (11.5-14.5) % Plt Count 274 (130-400) K/uL MPV 10.0 (9.4-12.4) fL Blood Type A Positive Antibody Screen NEGATIVE Administered Medications Discontinued Medications Clindamycin Phosphate (Cleocin/D5w) 600 mg in 50 mls @ 100 mls/hr IV NOW ONE Stop: 11/19/24 16:48 Last Infusion: 11/19/24 17:54 Dose: Infused Documented By: Admin: 11/19/24 17:26 Dose: 100 mls/hr Documented By: ANDREA Ketorolac Tromethamine (Ketorolac Tromethamine 15 Mg/Ml Vial) 10 mg IV NOW ONE Stop: 11/19/24 17:12 Last Admin: 11/19/24 17:26 Dose: 10 mg Documented By: ANDREA Lidocaine HCl (Lidocaine 1% Local 20 Ml Vial) 10 ml INFIL NOW ONE Stop: 11/19/24 16:22 Last Admin: 11/19/24 17:26 Dose: 10 ml Documented By: JOSEPH Morphine Sulfate (Morphine Sulfate 4 Mg/Ml 1 Ml Carp\\Vial) 4 mg IV NOW STA Stop: 11/19/24 18:28 Last Admin: 11/19/24 18:38 Dose: 4 mg Documented By: ANDREA Imaging Data Radiologist's Impression: Knee X-Ray 11/19/24 16:19 EXAMINATION: X-ray right knee 1 or 2 views CLINICAL HISTORY: Chainsaw laceration, right lateral knee PRIORS: None TECHNIQUE: Frontal lateral view knee. FINDINGS: Bone stock and alignment is normal. No acute fracture or dislocation. Mild to moderate subcutaneous gas is present inferior to the patella only identified on the crosstable lateral view and not localized on the frontal view. No radiopaque foreign body. No suprapatellar joint effusion. Patella unremarkable. IMPRESSION: Soft tissue swelling and subcutaneous gas noted above with no radiopaque foreign body or acute osseous abnormality. Electronically signed by Irlanda Blanchard 11-19-2024 5:28 PM Discharge Plan Visit Data Chief Complaint: Laceration/Cut (Suture/Dermabond) Stated Complaint: RT KNEE CUT WITH A CHAINSAW ED Provider: Balta Brooks ED Midlevel Provider: Monet Morales Discharge Problem: Laceration of knee, right Patient Disposition: Home - Self-Care Condition: Good Discharge Instructions Interventions: ED Discharge Assessment Last Done: 11/19/24 21:01
[2024-11-19 16:38] LABS: Hematocrit (blood only) 38.9 % (42.0-52.0); Hemoglobin 13.8 g/dl (14.0-18.0); Mean Corpuscular Hemoglobin 31.6 pg (25.0-34.0); Mean Corpuscular Hgb Conc 35.5 g/dL (32.0-36.0); Platelet Count 274 K/uL (130-400); RDW Coefficient of Variation 13.8 % (11.5-14.5); RDW Standard Deviation 44.9 fL (36.4-46.3); Red Blood Count 4.37 M/uL (4.70-6.10); White Blood Count 13.96 K/ul (4.8-10.8)
[2024-11-19] MEDS: KETOROLAC TROMETHAMINE 15 MG/ML VIAL IV ONE (17:26)
[2024-11-19] MEDS: LIDOCAINE 1% LOCAL 20 ML VIAL INFIL ONE (17:26)
[2024-11-19] MEDS: CLINDAMYCIN/D5W 600 MG/50 ML BAG IV ONE (17:26)
--- NOTE | 2024-11-19 17:29 | XRay Report ---
EXAMINATION: X-ray right knee 1 or 2 views CLINICAL HISTORY: Chainsaw laceration, right lateral knee PRIORS: None TECHNIQUE: Frontal lateral view knee. FINDINGS: Bone stock and alignment is normal. No acute fracture or dislocation. Mild to moderate subcutaneous gas is present inferior to the patella only identified on the crosstable lateral view and not localized on the frontal view. No radiopaque foreign body. No suprapatellar joint effusion. Patella unremarkable. IMPRESSION: Soft tissue swelling and subcutaneous gas noted above with no radiopaque foreign body or acute osseous abnormality. Electronically signed by Irlanda Blanchard 11-19-2024 5:28 PM
[2024-11-19] MEDS: MoRPHine SULFATE 4 MG/ML 1 ML CARP\\VIAL IV STA (18:38)
--- NOTE | 2024-11-19 19:57 | Emergency Department Note ---
ED Visit Note Care of this patient was signed out to me at change of shift by MACY Ramires. At that time he was awaiting orthopedic consultation. Dr. Alan did arrive to evaluate the patient and will take him to the OR for washout. Please see his note for further treatment and patient disposition. .
[2024-11-19] MEDS ORDERED: ONDANSETRON INJ 2 MG/ML 2 ML VIAL IV PRN ×2 (19:59→21:17)
[2024-11-19] MEDS ORDERED: GENTAMICIN CONSULT ACTIVE PRN (20:05)
[2024-11-19] MEDS ORDERED: ACETAMINOPHEN 500 MG TAB PO PRN (20:11)
[2024-11-19] MEDS ORDERED: ALBUTEROL HFA 8 GM INHALER INH PRN (20:14)
--- NOTE | 2024-11-19 20:24 | History & Physical Report ---
Date of Service November 19, 2024 Assessment & Plan (1) Laceration of knee, right: Plan: IMPRESSION: Right knee laceration involving the joint PLAN: Risks and benefits discussed of conservative vs surgical intervention recommended emergent need to take to OR tonight to I&D due to open right knee joint. Continue NPO IVF Abx safety consultant to OR Clindamycin & Gentamicin DVT Prophylaxis: TEDs & foot pumps Consent signed. OR notified. Present on Admission?: Yes History of Present Illness Chief Complaint: Right knee laceration Primary Care Provider: Jenny Trujillo PA-C 39 yo male who injured his right knee earlier today when he fell carrying his chain-saw and accidentally activated it and cut his right lower leg by the knee. He notes a previous injury to that knee as a teenager, may have subluxed his patella. He came to the ED, where the wound was irrigated, x-rays obtained. There was concern for involvement of the joint and I was consulted for further evaluation and treatment. Allergies Allergy/AdvReac Type Severity Reaction Status Date / Time amoxicillin Allergy Intermediate Swelling Verified 10/26/21 20:47 amd blistering of hands clavulanic acid Allergy Intermediate Swelling Verified 10/26/21 20:47 amd blistering of hands Home Medications Medication Instructions Recorded Confirmed Type albuterol sulfate 90 mcg/actuation 2 puff inhalation Q6H PRN 03/18/19 10/26/21 History aerosol inhaler (Ventolin HFA) Shortness Of Breath Or Wheezing baclofen 20 mg tablet 20 mg PO TID PRN Muscle Spasm 03/18/19 10/26/21 History dicyclomine 10 mg capsule 10 mg PO BID 03/18/19 10/26/21 History gabapentin 600 mg tablet 600 mg PO QID 03/18/19 10/26/21 History montelukast 10 mg tablet 10 mg PO QAM 03/18/19 10/26/21 History ibuprofen 200 mg tablet 1,400 mg PO DAILY PRN Pain 07/04/21 10/26/21 History oxycodone 5 mg tablet 5 mg PO Q4 PRN pain #20 tabs 10/26/21 Rx tramadol 50 mg tablet 50 mg PO UD PRN Pain 10/26/21 10/26/21 History baclofen 20 mg tablet 20 mg PO TID PRN spasm #30 tabs 01/16/24 Rx methylprednisolone 4 mg tablets in 4 mg PO DAILY #21 ea 01/16/24 Rx a dose pack (Medrol (Km)) tramadol 50 mg tablet 50 mg PO Q4H PRN pain #15 tabs 01/16/24 Rx Past Med/Surg History Problem List Laceration of knee, right (Acute) Medical History Asthma Anxiety Lumbar degenerative disc disease Surgical History History of partial colectomy Family History (Updated 11/19/24 @ 20:14 by Dannie Alan MD) Other Diabetes Social History Smoking Status: Current every day smoker Preferred Language: Malay marital status: Current Living Situation: Spouse current occupational status: employed Feels Safe at Home: Yes Review of Systems Review of Systems: All systems reviewed & are unremarkable except as noted in HPI & below Physical Exam Respiratory: Breathing easy Cardiovascular: Rate/Rhythm: regular rate Musculoskeletal: RLE: Sensation to light touch intact, 2+ DP pulse, motor to: gastroc soleus, EHL, Tib ant 5/5, able to preform a straight leg raise. knee ROM 0-80 deg No effusion 8 cm laceration over lateral aspect of t he knee joint, with evidence of laceration through IT Band. No active bleeding Ligament exam: stable Cem, Varus & valgus stress at 0 & 30 deg. Results & Data Results & Data Vital Signs (Past 12 Hours) Vital Signs Temp Pulse Pulse Resp BP BP Pulse Ox 11/19/24 20:00 61 18 112/69 97 11/19/24 19:06 11/19/24 18:00 61 16 114/69 96 11/19/24 16:54 67 18 90/59 L 94 11/19/24 16:15 55 L 16 98 11/19/24 15:59 36.9 C 93 H 16 114/73 96 O2 Del Method 11/19/24 20:00 Room Air 11/19/24 19:06 Room Air 11/19/24 18:00 Room Air 11/19/24 16:54 Room Air 11/19/24 16:15 Room Air 11/19/24 15:59 Room Air Laboratory Results Laboratory Results WBC 13.96 K/ul (4.8-10.8) H 11/19/24 16:20 RBC 4.37 M/uL (4.70-6.10) L 11/19/24 16:20 Hgb 13.8 g/dl (14.0-18.0) L 11/19/24 16:20 Hct 38.9 % (42.0-52.0) L 11/19/24 16:20 MCV 89.0 fL (80.0-100.0) 11/19/24 16:20 MCH 31.6 pg (25.0-34.0) 11/19/24 16:20 MCHC 35.5 g/dL (32.0-36.0) 11/19/24 16:20 RDW Std Deviation 44.9 fL (36.4-46.3) 11/19/24 16:20 RDW Coeff of Jacquelin 13.8 % (11.5-14.5) 11/19/24 16:20 Plt Count 274 K/uL (130-400) 11/19/24 16:20 MPV 10.0 fL (9.4-12.4) 11/19/24 16:20 Impressions Knee X-Ray 11/19/24 16:19 EXAMINATION: X-ray right knee 1 or 2 views CLINICAL HISTORY: Chainsaw laceration, right lateral knee PRIORS: None TECHNIQUE: Frontal lateral view knee. FINDINGS: Bone stock and alignment is normal. No acute fracture or dislocation. Mild to moderate subcutaneous gas is present inferior to the patella only identified on the crosstable lateral view and not localized on the frontal view. No radiopaque foreign body. No suprapatellar joint effusion. Patella unremarkable. IMPRESSION: Soft tissue swelling and subcutaneous gas noted above with no radiopaque foreign body or acute osseous abnormality. Electronically signed by Irlanda Blanchard 11-19-2024 5:28 PM Code Status & VTE Plan VTE Prophylaxis Plan VTE Prophylaxis will be ordered: Yes
[2024-11-19] MEDS ORDERED: ROCURONIUM BROMIDE 10 MG/ML 5 ML VIAL IV ONE (20:59)
[2024-11-19] MEDS ORDERED: LIDOCAINE 2% 2 ML VIAL/AMP(20MG/ML) INFIL ONE (20:59)
[2024-11-19] MEDS ORDERED: ONDANSETRON INJ 2 MG/ML 2 ML VIAL ONE (20:59)
[2024-11-19] MEDS ORDERED: DEXAMETHASONE SOD INJ 4 MG/ML VIAL ONE (20:59)
[2024-11-19] MEDS ORDERED: PROPOFOL IV EMULSION 10 MG/ML 20 ML VIAL IV ONE (20:59)
[2024-11-19] MEDS ORDERED: MIDAZOLAM HCL 1 MG/ML 2ML VIAL ONE (21:00)
[2024-11-19] MEDS ORDERED: fentaNYL citrate PF 100 MCG/2 ML VIAL ONE ×2 (21:00→21:56)
[2024-11-19] MEDS ORDERED: HYDROmorphone INJ 1 MG/ML SYRINGE IV PRN (21:17)
[2024-11-19] MEDS ORDERED: ePHEDrine sulfate 50 MG/ML AMP IV PRN (21:17)
[2024-11-19] MEDS ORDERED: PROMETHAZINE HCL 6.25 MG in SODIUM CHLORIDE 0.9% 50 ML IV PRN (21:17)
[2024-11-19] MEDS ORDERED: ATROPINE SULFATE 0.1 MG/ML 10ML SYR IV PRN (21:17)
[2024-11-19] MEDS ORDERED: fentaNYL citrate PF 100 MCG/2 ML VIAL IV PRN (21:17)
--- NOTE | 2024-11-19 21:19 | Anesthesiology Consultation ---
Date of Service November 19, 2024 Assessment & Plan (1) Encounter for pre-operative examination: Chart Review Chart Review: Acceptable Risk for Surgery and Patient NOT seen in Pre Admission Testing Consults Requested none History Surgery Operation Date: 11/19/24 20:00 Proposed Procedures p Incision and Drainage Knee(Right) - Dannie Alan MD Height/Weight Height: 5 ft 8 in Weight: 71.1 kg Allergies Allergy/AdvReac Type Severity Reaction Status Date / Time amoxicillin Allergy Intermediate Swelling Verified 10/26/21 20:47 amd blistering of hands clavulanic acid Allergy Intermediate Swelling Verified 10/26/21 20:47 amd blistering of hands Medications Home Medications Medication Instructions Recorded Confirmed Last Taken albuterol sulfate 90 mcg/actuation 2 puff inhalation Q6H PRN 03/18/19 10/26/21 Unknown aerosol inhaler (Ventolin HFA) Shortness Of Breath Or Wheezing baclofen 20 mg tablet 20 mg PO TID PRN Muscle Spasm 03/18/19 10/26/21 Unknown dicyclomine 10 mg capsule 10 mg PO BID 03/18/19 10/26/21 07/03/21 gabapentin 600 mg tablet 600 mg PO QID 03/18/19 10/26/21 07/03/21 montelukast 10 mg tablet 10 mg PO QAM 03/18/19 10/26/21 07/03/21 ibuprofen 200 mg tablet 1,400 mg PO DAILY PRN Pain 07/04/21 10/26/21 Unknown oxycodone 5 mg tablet 5 mg PO Q4 PRN pain #20 tabs 10/26/21 Unknown tramadol 50 mg tablet 50 mg PO UD PRN Pain 10/26/21 10/26/21 Unknown baclofen 20 mg tablet 20 mg PO TID PRN spasm #30 tabs 01/16/24 Unknown methylprednisolone 4 mg tablets in 4 mg PO DAILY #21 ea 01/16/24 Unknown a dose pack (Medrol (Km)) tramadol 50 mg tablet 50 mg PO Q4H PRN pain #15 tabs 01/16/24 Unknown Past Medical History Medical History (Updated 11/19/24 @ 21:19 by Shivam Young MD) Encounter for pre-operative examination Asthma Anxiety Lumbar degenerative disc disease Exercise / Class Metabolic Activity 1 > 8 Run/Swim/Ski/Tennis Past Family History Family History Other Diabetes Past Surgical History Surgical History History of partial colectomy Past Anesthesia History No Hx of Anesthesia Complications and No Family Hx of Anesthesia Complications History of PONV No Hx of PONV and No Hx of Motion Sickness Social History Smoking Status: Current every day smoker Physical Exam Vital Signs Last Vital Signs Temp 36.9 C 11/19/24 15:59 Pulse 49 L 11/19/24 21:01 Resp 16 11/19/24 21:01 BP 100/54 L 11/19/24 21:01 Pulse Ox 98 11/19/24 21:01 O2 Del Method Room Air 11/19/24 21:01 Testing Laboratory Results 11/19/24 16:20
[2024-11-19] MEDS: GENTAMICIN SULFATE 340 MG in DEXTROSE 5% 100 ML IV STA (21:32)
[2024-11-19] MEDS ORDERED: ePHEDrine sulfate 50 MG/ML AMP ONE (21:52)
[2024-11-19] MEDS ORDERED: DexMEDEtomidine HCL IV 100 MCG/ML VIAL IV ONE (21:53)
[2024-11-19] MEDS ORDERED: GLYCOPYRROLATE 0.2 MG/ML VIAL ONE (21:58)
[2024-11-19] MEDS ORDERED: SUGAMMADEX SODIUM 200 MG/2 ML VIAL IV ONE (22:10)
[2024-11-19] MEDS ORDERED: KETOROLAC 30 MG/ML VIAL ONE (22:25)
[2024-11-19] MEDS: BUPIVACAINE 0.5 % 5 MG/1 ML MPF 30ML VIAL ONE (23:15)
[2024-11-19] MEDS: LIDOCAINE 1%/EPINEPHRINE 1:100,000 50 ML VIAL ONE (23:20)
--- NOTE | 2024-11-19 23:23 | Post Operative Brief Note ---
Immediate Post Op Note Date of Surgery November 19, 2024 Pre & Post Diagnosis Operation Date: 11/19/24 20:00 Pre-Op Diagnosis: Right knee laceration involving the joint Post-Op Diagnosis: Right knee laceration involving the joint I identified the patient and participated in the time-out.: Yes Procedure Operation Date: 11/19/24 20:00 Actual Procedures p Irrigation and Debridement Right Knee joint. (Right) - Dannie Alan MD Surgeon Dannie Alan MD Programming Director Elvin Crespo DO Estimated Blood Loss 10 Findings Consistent with Post-Op Diagnosis Fluids 800 cc Drains Hemovac Drain (10Fr. ) Anesthesia Type General Complications none
--- NOTE | 2024-11-19 23:26 | Operative Report ---
Post Operative Report Pre & Post Diagnosis Operation Date: 11/19/24 20:00 Pre-Op Diagnosis: Right knee laceration involving the joint Post-Op Diagnosis: Right knee laceration involving the joint I identified the patient and participated in the time-out.: Yes Procedure Operation Date: 11/19/24 20:00 Actual Procedures p Irrigation and Debridement Right Knee Joint. (Right) - Dannie Alan MD Surgeon Dannie Alan MD Colorist Elvin Crespo DO Estimated Blood Loss 10 Findings See Below Lateral right knee laceration ~ 10 cm long, through IT band and involving the joint. There was some small black particles there were removed. There were 2 smaller superficial lacerations at the distal end of the larger wound parallel to each other and inferior. Fluids 800 cc Specimens n/a Drains HVAC Anesthesia Type General Complications none Indications The patient sustained an open right knee joint wound from a chainsaw injury. The patient understands the risks of surgery, which include but are not limited to: bleeding, infection, re-operation, damage to nerves and arteries, continued pain and DVT. The patient understands all of these instructions and explanations, al l of their questions have been satisfactorily addressed. The patient has elected to proceed with surgery and the informed consent was signed. Description of Procedure The patient was taken to the Operating Room and placed in the supine position on the operating table. After general anesthetic was administered a multidisciplinary time-out was performed identifying my initials on the right limb as the correct and operative limb. Antibiotics IV Clindamycin and Gentamicin were given. The right leg was prepped and draped in the usual Orthopaedic sterile fashion. The patient's wound edges were injected with a 50:50 mixture of 1% lidocaine and 0.5 % Marcaine with epi for a total of 10cc. The largest wound was explored as it was the deepest. There was a longitudinal laceration in-line with the fibers of the distal IT Band at the level of the joint line. There was devitalized, necrotic soft tissue along the wound edges of all 3 wounds. The IT Band laceration was extended proximally and distally, with noted extension the right knee joint. The joint capsule was also extended. The non-viable skin and soft tissue was removed with a combination of sharp dissection with the scalpel, curette,and rongeur. The wound was copiously irrigated with 9 L normal saline. All of the very small dark particles were flushed out of the wound or were r emoved with a rongeur. Following irrigation and debridement there was healthy viable tissue that was bleeding. A small HVAC was placed within the knee joint and out proximally. The capsule and the IT Band were closed with 0 Vicryl.The skin was closed with 0 & 3-0 Prolene. The wound was covered Xeroform, 4 x 4's, ABDs, sterile cast padding, and an WILDER. The patient was placed in a knee immobilzer. The sponge and needle counts were correct. POST-OP: Patient will be admitted and continued on IV Clindamycin & Gentamicin. They will be NWB until HVAC is removed. After removing the HVAC the immobilizer can be discontinued and may be WBAT. I attest to the content of the Intraoperative Record and any orders documented therein. Any exceptions are noted below.
--- NOTE | 2024-11-19 23:37 | XRay Report ---
Exam(s): XR CXR 1 VIEW EXAM: XR Chest, 1 View CLINICAL HISTORY: Reason for exam: Preop. TECHNIQUE: Frontal view of the chest. COMPARISON: Prior chest x-ray from March 18, 2019. FINDINGS: Lungs: Mild to moderate peribronchial thickening of the central bronchi. No consolidation. Pleural space: Unremarkable. No pneumothorax. Heart: Unremarkable. No cardiomegaly. Mediastinum: Unremarkable. Normal mediastinal contour. Bones/joints: Unremarkable. No acute fracture. IMPRESSION: Findings concerning for bronchitis, which may be of infectious or inflammatory etiologies. No consolidation or pleural effusion. Electronically signed by: Estrellita Caba MD 11/19/24 23:37 PM
--- NOTE | 2024-11-19 23:44 | Operative Report ---
Post Operative Report Pre & Post Diagnosis Operation Date: 11/19/24 20:00 Pre-Op Diagnosis: Right knee laceration involving the joint Post-Op Diagnosis: Right knee laceration involving the joint I identified the patient and participated in the time-out.: Yes Procedure Operation Date: 11/19/24 20:00 Actual Procedures p Irrigation and Debridement Right Knee. (Right) - Dannie Alan MD Surgeon Dannie Alan MD [employer] Elvin Crespo DO Estimated Blood Loss 10 Findings Consistent with Post-Op Diagnosis Specimens None Description of Procedure Patient was brought to the operative suite where he underwent anesthesia. Right lower extremities prepped and draped in the usual sterile fashion. A surgical timeout was performed. The patient underwent a right knee incision and debridement with wound closure, please see Dr. Alan's operative report for full details. I was present and assisted with patient positioning, limb positioning, soft tissue retraction, hemostasis, irrigation debridement, wound closure, postoperative dressing placement. The patient was awakened and taken to the recovery room in satisfactory condition. I attest to the content of the Intraoperative Record and any orders documented therein. Any exceptions are noted below.
[2024-11-20] MEDS ORDERED: bisacodyL 10 MG SUPP PR PRN (00:21)
[2024-11-20] MEDS ORDERED: MAGNESIUM HYDROXIDE SUSP 30 ML UDC PO PRN (00:21)
[2024-11-20] MEDS ORDERED: NALOXONE HCL 0.4 MG/1 ML VIAL/CARP IV PRN (00:21)
[2024-11-20] MEDS ORDERED: GENTAMICIN CONSULT ACTIVE PRN (00:21)
[2024-11-20] MEDS: MoRPHine SULFATE 4 MG/ML 1 ML CARP\\VIAL IV PRN (00:35)
--- NOTE | 2024-11-20 00:57 | Anesthesiology Progress Note ---
Date of Service November 20, 2024 Anesthesia Post Procedure Vital Signs Vital Signs: Temp Pulse Pulse Resp BP BP Pulse Ox 11/20/24 00:34 36.5 C 56 L 18 121/73 98 11/20/24 00:25 36.4 C L 68 18 114/74 97 11/19/24 23:58 36.9 C 60 18 116/56 L 94 11/19/24 23:48 36.5 C 94 H 18 115/74 96 11/19/24 23:38 36.8 C 93 H 18 115/74 93 11/19/24 21:01 49 L 16 100/54 L 98 11/19/24 20:00 61 18 112/69 97 11/19/24 19:06 11/19/24 18:00 61 16 114/69 96 11/19/24 16:54 67 18 90/59 L 94 11/19/24 16:15 55 L 16 98 11/19/24 15:59 36.9 C 93 H 16 114/73 96 O2 Del Method 11/20/24 00:34 Room Air 11/20/24 00:25 Room Air 11/19/24 23:58 Room Air 11/19/24 23:48 Room Air 11/19/24 23:38 Room Air 11/19/24 21:01 Room Air 11/19/24 20:00 Room Air 11/19/24 19:06 Room Air 11/19/24 18:00 Room Air 11/19/24 16:54 Room Air 11/19/24 16:15 Room Air 11/19/24 15:59 Room Air Transfer of Care Handoff Completed per policy Notes Mental Status: alert / awake / arousable and participated in evaluation Patient Amnestic to Procedure: Yes Nausea / Vomiting: adequately controlled Pain: adequately controlled Airway Patency, RR, SpO2: stable & adequate BP & HR: stable & adequate Hydration State: stable & adequate Anesthetic Complications: no major complications apparent and Pt Satisfied with anesthetic care
[2024-11-20] MEDS: CLINDAMYCIN/D5W 900 MG/50 ML BAG IV SCH (01:10)
[2024-11-20] MEDS: SODIUM CHLORIDE 0.9% 1,000 ML IV SCH (01:28)
[2024-11-20] MEDS: oxyCODONE HCL IR 5 MG TAB (IMMEDIATE RELEASE) PO PRN (01:33)
[2024-11-20] MEDS: DOCUSATE SODIUM 100 MG CAP PO SCH (01:34)
[2024-11-20] MEDS: GABAPENTIN 600 MG TAB PO SCH (01:39)
[2024-11-20] MEDS: MoRPHine SULFATE 2 MG/ML CARP IV PRN (05:22)
[2024-11-20] MEDS: CLINDAMYCIN/D5W 600 MG/50 ML BAG IV SCH (05:27)
[2024-11-20] MEDS: ASPIRIN 81 MG ECTAB PO SCH (08:18)
[2024-11-20] MEDS: CeleBREX 200 MG CAP PO SCH (08:18)
[2024-11-20] MEDS: MONTELUKAST SODIUM 10 MG TABLET PO SCH (08:18)
[2024-11-20 08:20] LABS: BUN Creatinine Ratio 17.2 (10-20); Calcium 8.7 mg/dl (8.6-10.3); Creatinine Clr Calc Pharmacy 110.3 ml/min; Potassium 4.4 mmol/L (3.5-5.1)
[2024-11-20 08:34] LABS: Hematocrit (blood only) 38.5 % (42.0-52.0); Mean Corpuscular Hgb Conc 33.8 g/dL (32.0-36.0); Mean Corpuscular Volume 91.7 fL (80.0-100.0); Mean Platelet Volume 10.3 fL (9.4-12.4); Platelet Count 243 K/uL (130-400); RDW Coefficient of Variation 14.1 % (11.5-14.5); RDW Standard Deviation 47.8 fL (36.4-46.3); White Blood Count 16.29 K/ul (4.8-10.8)
--- NOTE | 2024-11-20 15:06 | Orthopedic Progress Note ---
Date of Service November 20, 2024 Assessment & Plan (1) Laceration of knee, right: Plan: IMPRESSION: Right knee laceration involving the joint Pain control with p.o. medication D/c'd immobilizer Patient may be weightbearing as tolerated and work on active knee range of motion. He should use either crutches or a walker as ambulatory assistive device A new dressing was placed during today's visit Hemovac drain was pulled Will plan on keeping until tomorrow to ensure no infection DVT Prophylaxis: TEDs & foot pumps Admission and Anticipated Discharge Date Admission Date: November 19, 2024 Subjective This 39-year-old male seen today for his day 1 follow-up after undergoing irrigation debridement of his right knee after sustaining an injury with a chainsaw. Patient currently has a Hemovac drain in the right knee. There is no active drainage in the canister. Patient currently has a knee immobilizer in place as well and has been nonweightbearing. He states his pain is well- controlled with the p.o. pain medication he is receiving. He has no other complaints at this time. Review of Systems Review of Systems: All systems reviewed & are unremarkable except as noted in Subjective Physical Exam 2 Physical Exam: Right knee: Immobilizer and outer dressing were removed. Xeroform dressing was left in place. Hemovac had no drainage in it so it was pulled. This puncture site was covered with a small piece of Adaptic. A new dressing consisting of sterile pads ABDs and Griffin bandage were applied. Patient is able to perform right straight leg raise test. He is able to actively dorsi and plantarflex his foot without issue. He is able to detect light sensation to touch over the pads of all digits. Active knee range of motion was from 0 degrees of extension to 90 degrees of flexion with only slight discomfort. His quad strength was 4+ out of 5. He was neurovascularly intact in the right lower extremity. Peripheral pulses were 2+. Results & Data Vital Signs (Past 12 Hours) Vital Signs Temp Pulse Resp BP Pulse Ox O2 Del Method 11/20/24 11:05 36.5 C 52 L 20 100/60 98 Room Air 11/20/24 07:07 36.4 C L 70 17 93/51 L 95 Room Air 11/20/24 05:17 76 16 103/57 L 97 Room Air Diagnostic Findings Laboratory Results WBC 16.29 K/ul (4.8-10.8) H 11/20/24 07:45 RBC 4.20 M/uL (4.70-6.10) L 11/20/24 07:45 Hgb 13.0 g/dl (14.0-18.0) L 11/20/24 07:45 Hct 38.5 % (42.0-52.0) L 11/20/24 07:45 MCV 91.7 fL (80.0-100.0) 11/20/24 07:45 MCH 31.0 pg (25.0-34.0) 11/20/24 07:45 MCHC 33.8 g/dL (32.0-36.0) 11/20/24 07:45 RDW Std Deviation 47.8 fL (36.4-46.3) H 11/20/24 07:45 RDW Coeff of Jacquelin 14.1 % (11.5-14.5) 11/20/24 07:45 Plt Count 243 K/uL (130-400) 11/20/24 07:45 MPV 10.3 fL (9.4-12.4) 11/20/24 07:45 Sodium 139 mmol/L (136-145) 11/20/24 07:45 Potassium 4.4 mmol/L (3.5-5.1) 11/20/24 07:45 Chloride 108 mmol/L (98-107) H 11/20/24 07:45 Carbon Dioxide 27 mmol/L (21-32) 11/20/24 07:45 Anion Gap 4 (3-11) 11/20/24 07:45 BUN 15 mg/dl (6-23) 11/20/24 07:45 Creatinine 0.87 mg/dl (0.6-1.4) 11/20/24 07:45 Est Cr Clr Drug Dosing 110.3 ml/min 11/20/24 07:45 eGFR 112.56 11/20/24 07:45 BUN/Creatinine Ratio 17.2 (10-20) 11/20/24 07:45 Glucose 161 mg/dl (70-99(Fasting)) H 11/20/24 07:45 Calcium 8.7 mg/dl (8.6-10.3) 11/20/24 07:45 Blood Type A Positive 11/19/24 20:33 Antibody Screen NEGATIVE 11/19/24 20:33 Impressions Knee X-Ray 11/19/24 16:19 EXAMINATION: X-ray right knee 1 or 2 views CLINICAL HISTORY: Chainsaw laceration, right lateral knee PRIORS: None TECHNIQUE: Frontal lateral view knee. FINDINGS: Bone stock and alignment is normal. No acute fracture or dislocation. Mild to moderate subcutaneous gas is present inferior to the patella only identified on the crosstable lateral view and not localized on the frontal view. No radiopaque foreign body. No suprapatellar joint effusion. Patella unremarkable. IMPRESSION: Soft tissue swelling and subcutaneous gas noted above with no radiopaque foreign body or acute osseous abnormality. Electronically signed by Irlanda Blanchard 11-19-2024 5:28 PM Chest X-Ray 11/19/24 20:20 Exam(s): XR CXR 1 VIEW EXAM: XR Chest, 1 View CLINICAL HISTORY: Reason for exam: Preop. TECHNIQUE: Frontal view of the chest. COMPARISON: Prior chest x-ray from March 18, 2019. FINDINGS: Lungs: Mild to moderate peribronchial thickening of the central bronchi. No consolidation. Pleural space: Unremarkable. No pneumothorax. Heart: Unremarkable. No cardiomegaly. Mediastinum: Unremarkable. Normal mediastinal contour. Bones/joints: Unremarkable. No acute fracture. IMPRESSION: Findings concerning for bronchitis, which may be of infectious or inflammatory etiologies. No consolidation or pleural effusion. Electronically signed by: Estrellita Caba MD 11/19/24 23:37 PM
[2024-11-20] MEDS: NICOTINE 14 MG/24 HR PATCH TD SCH (18:41)
[2024-11-20] MEDS: SENNA 8.6 MG TAB PO SCH (19:47)
[2024-11-20] MEDS: GENTAMICIN SULFATE 340 MG in DEXTROSE 5% 100 ML IV ONE (21:07)
[2024-11-21 07:08] VITALS: BP 146/82; PULSE 77; RESP 18; TEMP 98.6; O2SAT 97
--- NOTE | 2024-11-21 08:53 | Discharge Summary ---
Date of Service November 21, 2024 Admission HPI Per Admitting Provider This 39 yo male presented through the ED on 11/19 after injuring his right knee earlier in the day when he fell carrying his chain-saw and accidentally activated it and cut his right lower leg by the knee. He notes a previous injury to that knee as a teenager, may have subluxed his patella. He came to the ED, where the wound was irrigated and x-rays were obtained. There was concern for involvement of the joint and Dr. Alan was consulted for further evaluation and treatment. The patient was thought to have transected his capsule and entered the knee joint. Because of this, he was taken to the operating room for irrigation and debridement. Preop clindamycin 600 mg was given. [employer] [employer] He underwent successful irrigation and debridement of the right knee. Violation of the knee joint was found during surgery. He was wrapped in a bulky postsurgical dressing and a Hemovac was placed. He was also placed in a knee immobilizer for protection. The rest of the day was uneventful. He was reevaluated on 11/20 and found to be in good condition. He had very little pain. He was able to perform a straight leg raise. His dressings were changed after removal of his Hemovac. There was very little bleeding. No drainage. He remained afebrile and pain control was good. White count on the was 13.96. White count on the was 16.29. He continued receiving gentamicin IV due to the joint violation. Vitals remained stable. On the morning of 11/21 he was reevaluated. The patient was again in good spirits and had very little pain. He was able to participate with physical therapy and was ambulatory with a walker. He desired discharge to home. Discharge Data Procedures Performed Operation Date: 11/19/24 20:00 Actual Procedures p Irrigation and Debridement Right Knee. (Right) - Dnanie Alan MD Hospital Course (1) Laceration of knee, right: He was prescribed a Zithromax Z-KEIRA for additional antibiotic coverage, to be started on the evening of 11/21. Additional prescription for oxycodone was sent to his pharmacy. He was discharged home and may be weightbearing as tolerated. Follow-up in the office on 11/24 for a reevaluation of his knee.
--- NOTE | 2024-11-21 09:43 | Orthopedic Progress Note ---
Date of Service November 21, 2024 Assessment & Plan (1) Laceration of knee, right: Plan: IMPRESSION: POD #2 s/p I&D Right knee laceration involving the joint, doing as well as aspected PLAN: TARSHA D/c'd immobilizer WBAT Dressing changed today, change prn Hemovac drain was d/c 11/20/24 Continue Abx, will switch to Z-pac upon d/c DVT Prophylaxis: TEDs x 2 weeks & foot pumps while in hospital, ASA 81 mg BID x 3 weeks PT/OT Continue pain control Taught seated self assisted ROM exercises. F/U in office 11/24/24 for wound check D/C later today Admission and Anticipated Discharge Date Admission Date: November 19, 2024 Subjective Right knee pain, tightness Physical Exam Physical Exam: RLE: Sensation to light touch is intact. BCR < 2 sec. Able to wiggle toes and ankle up and down. Calf soft and non-tender. + swelling calf. Small effusion. Largest laceration is well approximated. The 2 smaller laceration with serous drainage, no evidence of infection. Minimal bruising adjecent to the wounds. Results & Data Vital Signs (Past 12 Hours) Vital Signs Temp Pulse Resp BP BP Pulse Ox O2 Del Method 11/21/24 07:05 37.0 C 77 18 146/82 H 97 Room Air 11/21/24 00:15 36.8 C 56 L 16 133/82 100 Room Air
== END 2024-11-21 12:06 | disposition home or self-care (01) | DRG 465 ==
LOC: ED 15:52 → 3N 21:01 → OR 21:01 → 3N 21:02